=== PATIENT | male | born 1940 | race African-American/Black ===

== ENCOUNTER 2021-11-19 00:02 | Inpatient (IN) | payer MEDICARE, MEDICAID ==
[2021-11-19 00:49] LABS: #Neutrophils 9.3 10x3/uL (1.5-8.4); %Basophils 0.1 % (0.0-2.0); %Eosinophils 0.1 % (0.0-6.0); %Lymphocytes 18.5 % (18.0-47.0); %Monocytes 14.5 % (0.0-10.0); %Neutrophils 66.5 % (40.0-75.0); Hemoglobin 12.3 g/dL (13.5-17.5); Mean Corpuscular HGB CONC 32.1 g/dL (32.0-36.0); Mean Corpuscular Hemoglobin 25.6 pg (27.0-33.0); Mean Corpuscular Volume 79.8 fl (81.2-95.1); Mean Platelet Volume 11.5 fl (7.4-10.4); Platelet Count 196 10x3/uL (150-450); RBC Distribution Width 15.6 % (11.5-14.5)
[2021-11-19 01:05] LABS: ALT (SGPT) 16 U/L (8-55); AST (SGOT) 18 U/L (5-34); Albumin 3.7 g/dL (3.4-4.8); Alkaline Phosphatase 83 U/L (40-110); Anion Gap 15 mmol/L (10-20); BUN (Urea Nitrogen) 9 mg/dL (8.4-25.7); Calc. Creatinine Clearance 0 mL/min (70-130); Calcium 9.4 mg/dL (7.8-10.44); Carbon Dioxide 26 mmol/L (23-31); Chloride 103 mmol/L (98-107); Glucose 211 mg/dL (83-110); Potassium 3.2 mmol/L (3.5-5.1); Protein, Total 6.7 g/dL (5.8-8.1); Sodium 141 mmol/L (136-145)
[2021-11-19 01:32] LABS: INR-International Normal Ratio 1.1; Prothrombin Time 11.4 sec (9.5-12.1)
[2021-11-19] MEDS ORDERED: Cefepime 2 GM VIAL ONE (01:44)
[2021-11-19] MEDS ORDERED: Lidocaine 1% (PF) 30 ML VIAL ONE (01:47)
[2021-11-19] MEDS ORDERED: Guaifenesin DM 100-10/5 ML UDCUP PO PRN (03:32)
[2021-11-19] MEDS ORDERED: Ondansetron PF 4 MG/2 ML Vial IVP PRN (03:32)
[2021-11-19] MEDS ORDERED: HumaLOG 300 UNITS/3 ML VIAL SC PRN (03:32)
[2021-11-19] MEDS ORDERED: Senokot S 8.6-50 MG TAB PO PRN (03:32)
[2021-11-19] MEDS ORDERED: Dextrose 5% in Water 1,000 ML IV PRN (03:32)
[2021-11-19] MEDS ORDERED: Dextrose 50% Abboject 50 ML SYRINGE SLOW IVP PRN (03:32)
[2021-11-19] MEDS ORDERED: HYDROcodone/Acetaminophen 5/325 mg Tablet PO PRN (03:32)
[2021-11-19] MEDS ORDERED: Calcium Carbonate 500 MG ChewTAB PO PRN (03:32)
[2021-11-19] MEDS ORDERED: Acetaminophen 325 MG TAB PO PRN (03:32)
[2021-11-19] MEDS ORDERED: hydrALAZINE 20 MG/ML VIAL SLOW IVP PRN (03:36)
[2021-11-19 04:24] LABS: BF Color Yellow; Body Fluid Source Synovial Fluid; Clarity Cloudy/Turbid (Clear); Tube # 1
[2021-11-19 04:37] LABS: Bilirubin Neg (Negative); Blood, Urine 25 (Negative); Clarity Clear (Clear); Glucose, Urine (Dipstick) 250 mg/dL (Negative); Ketone, Urine Negative (Negative); Leukocyte 25 (Negative); Nitrite Negative (Negative); Protein, Urine (Dipstick) 15 mg/dl (Neg-Trace); Specific Gravity, Urine 1.005 (1.002-1.036); Urobilinogen Normal mg/dL (Less than 2)
[2021-11-19 04:49] LABS: Bacteria/HPF None Seen HPF (None Seen); Mucous/LPF None Seen LPF (<2+); RBC/HPF 0-3 HPF (0-3); Squamous Epithelial 0-3 HPF (0-3); WBC/HPF 0-3 HPF (0-3)
[2021-11-19 04:50] LABS: BF Segmented Neutrophils 95 %; Lymphocytes 5 %
[2021-11-19 05:09] LABS: Lactic Acid 1.8 mmol/L (0.5-2.2)
[2021-11-19 06:25] VITALS: BMI 43.4
[2021-11-19 06:53] LABS: SARS-CoV-2 NAA Rapid Test Not Detected (NotDetected)
[2021-11-19] MEDS ORDERED: Potassium Chloride 20 MEQ TAB PO SCH (08:00)
[2021-11-19] MEDS ORDERED: Carvedilol 6.25 MG TAB PO SCH (08:00)
[2021-11-19] MEDS ORDERED: Aspirin Chewable 81 MG TAB PO SCH (09:00)
[2021-11-19] MEDS ORDERED: Ezetimibe 10 MG TAB PO SCH (09:00)
[2021-11-19] MEDS ORDERED: Lantus 1000 UNITS/10 ML VIAL SC SCH (09:00)
[2021-11-19] MEDS ORDERED: Rosuvastatin 20 MG TAB PO SCH (09:00)
[2021-11-19] MEDS ORDERED: Enoxaparin Sodium 40 MG/0.4 ML SYRINGE SC SCH (09:00)
[2021-11-19] MEDS ORDERED: Furosemide 20 MG TAB PO SCH (09:00)
[2021-11-19] MEDS ORDERED: Losartan Potassium 50 MG TAB PO SCH (09:00)
[2021-11-19 12:37] VITALS: BP 191/86; TEMP 97.6
[2021-11-19] MEDS ORDERED: VANCOMYCIN 1.75 GM/350 ML BAG 1.75 GM in Premix Bag 1 BAG IVPB SCH (14:00)
[2021-11-19] MEDS ORDERED: Cefepime 1 GM in Sodium Chloride 0.9% 100 ML IVPB SCH (15:00)
== END 2021-11-19 12:37 | disposition short-term general hospital (02) | DRG 871 ==
LOC: CSHERS 00:02 → CSHTELE 05:10
PROVIDERS: ADMIT Student in an Organized Health Care Education/Training Program; ATTEND Internal Medicine
PROC: 0R9M3ZZ Drainage of Left Elbow Joint, Percutaneous Approach (ICD-10-PCS; principal; 2021-11-19)
PROC: 3E03329 Introduction of Other Anti-infective into Peripheral Vein, Percutaneous Approach (ICD-10-PCS; 2021-11-19)
DX: A41.9 Sepsis, unspecified organism (principal); G93.41 Metabolic encephalopathy; M00.9 Pyogenic arthritis, unspecified; I42.9 Cardiomyopathy, unspecified; E87.2 Acidosis; L03.114 Cellulitis of left upper limb; I50.20 Unspecified systolic (congestive) heart failure; I69.354 Hemiplegia and hemiparesis following cerebral infarction affecting left non-dominant side; Z68.41 Body mass index [BMI] 40.0-44.9, adult; R65.20 Severe sepsis without septic shock; F03.90 Unspecified dementia, unspecified severity, without behavioral disturbance, psychotic disturbance, mood disturbance, and anxiety; E78.5 Hyperlipidemia, unspecified; I25.10 Atherosclerotic heart disease of native coronary artery without angina pectoris; M10.9 Gout, unspecified; E66.9 Obesity, unspecified; I16.0 Hypertensive urgency; E11.65 Type 2 diabetes mellitus with hyperglycemia; I11.0 Hypertensive heart disease with heart failure; E87.6 Hypokalemia; G89.29 Other chronic pain; K21.9 Gastro-esophageal reflux disease without esophagitis; E11.51 Type 2 diabetes mellitus with diabetic peripheral angiopathy without gangrene; Z96.653 Presence of artificial knee joint, bilateral; M25.422 Effusion, left elbow; Z20.822 Contact with and (suspected) exposure to COVID-19; Z79.82 Long term (current) use of aspirin; Z79.899 Other long term (current) drug therapy; Z79.4 Long term (current) use of insulin; Z98.890 Other specified postprocedural states
CPT/HCPCS: 36415; 36416; 70450; 80053; 81003; 81015; 82945; 83605; 83880; 84484; 85025; 85610; 85652; 85730; 86140; 87040; 87070; 87086; 87205; 89051; 89060; 93005; 93306; J0360; J0692; J2001; J3370; U0002

== ENCOUNTER 2023-07-10 05:36 | Inpatient (IN) | payer OTHER ==
[2023-07-10] MEDS ORDERED: Ondansetron PF 4 MG/2 ML Vial ONE (05:59)
[2023-07-10] MEDS ORDERED: Morphine 4 MG/ML VIAL ONE (05:59)
[2023-07-10 06:40] LABS: #Monocytes 1.6 10x3/uL (0.0-1.1); #Neutrophils 12.6 10x3/uL (1.5-8.4); %Basophils 0.2 % (0.0-2.0); %Eosinophils 0.2 % (0.0-6.0); %Lymphocytes 11.9 % (18.0-47.0); %Monocytes 9.6 % (0.0-10.0); %Neutrophils 77.9 % (40.0-75.0); Hematocrit 42.8 % (38.8-50.0); Hemoglobin 13.8 g/dL (13.5-17.5); Mean Corpuscular HGB CONC 32.2 g/dL (32.0-36.0); Mean Corpuscular Hemoglobin 25.8 pg (27.0-33.0); Mean Corpuscular Volume 80.1 fl (81.2-95.1); Mean Platelet Volume 11.1 fl (7.4-10.4); Platelet Count 221 10x3/uL (150-450); Red Blood Cell (RBC) Count 5.34 10x6/uL (4.32-5.72); White Blood Cell (WBC) Count 16.2 10x3/uL (3.5-10.5)
[2023-07-10 07:01] LABS: ALT (SGPT) 28 U/L (8-55); AST (SGOT) 32 U/L (5-34); Alkaline Phosphatase 113 U/L (40-110); Anion Gap 15 mmol/L (10-20); BUN (Urea Nitrogen) 9 mg/dL (8.4-25.7); Bilirubin, Total 2.1 mg/dL (0.2-1.2); Calc. Creatinine Clearance 0 mL/min (70-130); Calcium 9.2 mg/dL (7.8-10.44); Carbon Dioxide 25 mmol/L (23-31); Chloride 104 mmol/L (98-107); Estimated GFR 88; Globulin 3.3 g/dL (2.4-3.5); Glucose 90 mg/dL (83-110); Lipase 11 U/L (8-78); Potassium 3.7 mmol/L (3.5-5.1); Protein, Total 7.3 g/dL (5.8-8.1); Sodium 140 mmol/L (136-145)
[2023-07-10] MEDS ORDERED: Piperacillin/Tazobactam 3.375 GM VIAL ONE (07:07)
[2023-07-10 07:12] LABS: Bilirubin Neg (Negative); Blood, Urine 50 (Negative); Clarity Clear (Clear); Glucose, Urine (Dipstick) Normal (Negative); Ketone, Urine 15 mg/dL (Negative); Leukocyte Negative (Negative); Nitrite Negative (Negative); Protein, Urine (Dipstick) Negative (Neg-Trace); Specific Gravity, Urine 1.005 (1.005-1.030)
[2023-07-10 07:39] LABS: Bacteria/HPF None Seen HPF (None Seen); CAUTI Indications for Culture Pelvic or flank pain; Squamous Epithelial None Seen HPF (0-3); Urine Culture Reflex No No; WBC/HPF 0-3 HPF (0-3)
[2023-07-10 09:55] LABS: Troponin I Less than 0.010 ng/mL (< 0.028)
[2023-07-10] MEDS ORDERED: Iopamidol 300 61% 100 ML VIAL FS ONE (10:19)
[2023-07-10 10:46] VITALS: BMI 41.8
[2023-07-10 13:00] LABS: Troponin I 0.017 ng/mL (< 0.028)
[2023-07-10] MEDS ORDERED: Dextrose 5% in Water 1,000 ML IV PRN (13:08)
[2023-07-10] MEDS ORDERED: Dextrose 50% Abboject 50 ML SYRINGE SLOW IVP PRN (13:08)
[2023-07-10] MEDS ORDERED: Glucagon 1 MG/ML KIT IM PRN (13:08)
[2023-07-10] MEDS ORDERED: HumaLOG 300 UNITS/3 ML VIAL SC PRN (13:08)
[2023-07-10] MEDS ORDERED: Acetaminophen 325 MG TAB PO PRN (13:10)
[2023-07-10] MEDS ORDERED: Ondansetron ODT 4 MG TAB PO PRN (13:10)
[2023-07-10] MEDS ORDERED: Calcium Carbonate 500 MG ChewTAB PO PRN (13:10)
[2023-07-10] MEDS ORDERED: Ondansetron PF 4 MG/2 ML Vial IVP PRN (13:10)
[2023-07-10] MEDS ORDERED: Piperacillin/Tazobactam 3.375 GM in Sodium Chloride 0.9% 100 ML IVPB SCH (14:00)
[2023-07-10 15:41] LABS: Magnesium 2.2 mg/dL (1.6-2.6)
[2023-07-10 15:45] LABS: Troponin I 0.027 ng/mL (< 0.028)
[2023-07-10] MEDS: Piperacillin/Tazobactam 3.375 GM in Sodium Chloride 0.9% 100 ML IVPB SCH (18:05)
[2023-07-10] MEDS ORDERED: Labetalol HCl 100 MG/20 ML VIAL SLOW IVP PRN (18:49)
[2023-07-10] MEDS: Saccharomyces boulardii 250 MG CAP PO SCH (22:28)
[2023-07-10] MEDS: Senokot S 8.6-50 MG TAB PO SCH (22:28)
[2023-07-10] MEDS: Heparin 5,000 UNITS/ML VIAL SC SCH (22:28)
[2023-07-10] MEDS: HumaLOG 300 UNITS/3 ML VIAL SC PRN (22:29)
[2023-07-11] MEDS: Piperacillin/Tazobactam 3.375 GM in Sodium Chloride 0.9% 100 ML IVPB SCH ×3 (03:57→18:13)
[2023-07-11 05:23] LABS: Hematocrit 40.5 % (38.8-50.0); Hemoglobin 13.3 g/dL (13.5-17.5); Mean Corpuscular HGB CONC 32.8 g/dL (32.0-36.0); Mean Corpuscular Volume 79.3 fl (81.2-95.1); Mean Platelet Volume 10.7 fl (7.4-10.4); Platelet Count 177 10x3/uL (150-450); RBC Distribution Width 15.9 % (11.5-14.5); Red Blood Cell (RBC) Count 5.11 10x6/uL (4.32-5.72); White Blood Cell (WBC) Count 26.1 10x3/uL (3.5-10.5)
[2023-07-11 05:35] LABS: ALT (SGPT) 52 U/L (8-55); AST (SGOT) 45 U/L (5-34); Albumin 3.4 g/dL (3.4-4.8); Alkaline Phosphatase 83 U/L (40-110); Anion Gap 14 mmol/L (10-20); BUN (Urea Nitrogen) 17 mg/dL (8.4-25.7); Bilirubin, Total 2.9 mg/dL (0.2-1.2); Calc. Creatinine Clearance 105 mL/min (70-130); Calcium 8.6 mg/dL (7.8-10.44); Carbon Dioxide 23 mmol/L (23-31); Chloride 103 mmol/L (98-107); Estimated GFR 71; Glucose 246 mg/dL (83-110); Potassium 4.6 mmol/L (3.5-5.1); Protein, Total 6.4 g/dL (5.8-8.1); Sodium 135 mmol/L (136-145)
[2023-07-11 06:01] LABS: MDiff Complete? YES
[2023-07-11 06:02] LABS: Microcytosis SLIGHT = 6-15 cells (100X) (0-5/hpf); Platelet Adequacy Comment Appears Adequate
[2023-07-11 06:33] LABS: Band 6 % (5-11); Lymphocytes 12 % (21-51); Monocytes 13 % (0-10); Neutrophil 69 % (42-75)
[2023-07-11] MEDS ORDERED: Doxycycline 100 MG CAP PO SCH (09:00)
[2023-07-11] MEDS: Senokot S 8.6-50 MG TAB PO SCH ×2 (09:41→23:22)
[2023-07-11] MEDS: Heparin 5,000 UNITS/ML VIAL SC SCH (09:45)
[2023-07-11] MEDS ORDERED: Morphine 2 MG/ML VIAL SLOW IVP SCH (14:00)
[2023-07-11 14:23] LABS: Legionella Urinary Ag Negative (Negative); Strep pneumo Urine Ag NEGATIVE (NEGATIVE)
[2023-07-11] MEDS: Saccharomyces boulardii 250 MG CAP PO SCH (23:22)
[2023-07-11] MEDS: Pantoprazole 40 MG VIAL IVP SCH (23:22)
[2023-07-12] MEDS: Piperacillin/Tazobactam 3.375 GM in Sodium Chloride 0.9% 100 ML IVPB SCH ×3 (03:00→17:01)
[2023-07-12 05:23] LABS: #Eosinphils 0.1 10x3/uL (0.0-0.5); #Monocytes 2.2 10x3/uL (0.0-1.1); #Neutrophils 16.4 10x3/uL (1.5-8.4); %Basophils 0.2 % (0.0-2.0); %Eosinophils 0.4 % (0.0-6.0); %Lymphocytes 10.6 % (18.0-47.0); %Monocytes 10.4 % (0.0-10.0); %Neutrophils 77.8 % (40.0-75.0); Hematocrit 40.1 % (38.8-50.0); Hemoglobin 12.9 g/dL (13.5-17.5); Mean Corpuscular HGB CONC 32.2 g/dL (32.0-36.0); Mean Corpuscular Hemoglobin 25.5 pg (27.0-33.0); Mean Corpuscular Volume 79.2 fl (81.2-95.1); Mean Platelet Volume 11.3 fl (7.4-10.4); Platelet Count 169 10x3/uL (150-450); RBC Distribution Width 15.9 % (11.5-14.5); Red Blood Cell (RBC) Count 5.06 10x6/uL (4.32-5.72); White Blood Cell (WBC) Count 21.1 10x3/uL (3.5-10.5)
[2023-07-12] MEDS: HumaLOG 300 UNITS/3 ML VIAL SC PRN ×3 (05:35→20:48)
[2023-07-12 05:43] LABS: ALT (SGPT) 52 U/L (8-55); AST (SGOT) 42 U/L (5-34); Albumin 3.2 g/dL (3.4-4.8); Alkaline Phosphatase 78 U/L (40-110); Anion Gap 13 mmol/L (10-20); BUN (Urea Nitrogen) 14 mg/dL (8.4-25.7); Bilirubin, Total 2.8 mg/dL (0.2-1.2); Calc. Creatinine Clearance 130 mL/min (70-130); Calcium 8.4 mg/dL (7.8-10.44); Carbon Dioxide 23 mmol/L (23-31); Chloride 104 mmol/L (98-107); Estimated GFR 87; Globulin 3.2 g/dL (2.4-3.5); Glucose 205 mg/dL (83-110); Magnesium 2.2 mg/dL (1.6-2.6); Protein, Total 6.4 g/dL (5.8-8.1); Sodium 136 mmol/L (136-145)
[2023-07-12] MEDS: Pantoprazole 40 MG VIAL IVP SCH ×2 (09:05→20:48)
[2023-07-12] MEDS ORDERED: EPINEPHrine 1 MG/ML VIAL ONE (10:11)
[2023-07-12] MEDS ORDERED: Bupivacaine PF 0.5% 30 ML VIAL ONE (10:12)
[2023-07-12] MEDS ORDERED: fentaNYL 50 mcg/mL 1 mL Vial ONE ×4 (10:38→13:57)
[2023-07-12] MEDS ORDERED: PROPOFOL 20 ML ONE (10:38)
[2023-07-12] MEDS ORDERED: Lidocaine 1% PF 5 ML VIAL ONE (10:43)
[2023-07-12] MEDS ORDERED: Rocuronium Bromide 10 MG/ML (10ML VIAL) ONE (10:43)
[2023-07-12] MEDS ORDERED: Ipratropium/Albuterol 3 ML NEB ONE (10:54)
[2023-07-12] MEDS ORDERED: Phenylephrine 40 MG/NS 250 ML 250 ML ONE (11:05)
[2023-07-12] MEDS ORDERED: ePHEDrine Sulfate 50 MG/10 ML VIAL ONE (11:24)
[2023-07-12] MEDS ORDERED: Ondansetron PF 4 MG/2 ML Vial ONE (12:21)
[2023-07-12] MEDS ORDERED: SUGAMMADEX SODIUM 200 MG/2 ML VIAL ONE (12:23)
[2023-07-12] MEDS ORDERED: Furosemide 20 MG/2 ML VIAL SLOW IVP SCH (14:00)
[2023-07-12] MEDS ORDERED: Morphine 4 MG/ML VIAL SLOW IVP PRN (14:48)
[2023-07-12] MEDS ORDERED: Acetaminophen 325 MG TAB PO PRN (14:48)
[2023-07-12] MEDS ORDERED: HYDROcodone/Acetaminophen 5/325 mg Tablet PO PRN (14:48)
[2023-07-12] MEDS ORDERED: Morphine 2 MG/ML VIAL SLOW IVP PRN (14:51)
[2023-07-12] MEDS: Heparin 5,000 UNITS/ML VIAL SC SCH (20:49)
[2023-07-12] MEDS: Senokot S 8.6-50 MG TAB PO SCH (20:49)
[2023-07-13] MEDS ORDERED: Ipratropium/Albuterol 3 ML NEB NEB PRN (01:06)
[2023-07-13] MEDS ORDERED: Furosemide 20 MG/2 ML VIAL SLOW IVP SCH ×2 (01:30→09:30)
[2023-07-13] MEDS: HumaLOG 300 UNITS/3 ML VIAL SC PRN ×5 (01:30→21:58)
[2023-07-13] MEDS: Piperacillin/Tazobactam 3.375 GM in Sodium Chloride 0.9% 100 ML IVPB SCH ×3 (01:30→18:20)
[2023-07-13 04:43] LABS: #Eosinphils 0.1 10x3/uL (0.0-0.5); #Monocytes 2.1 10x3/uL (0.0-1.1); #Neutrophils 11.1 10x3/uL (1.5-8.4); %Basophils 0.2 % (0.0-2.0); %Eosinophils 0.6 % (0.0-6.0); %Lymphocytes 12.4 % (18.0-47.0); %Monocytes 13.4 % (0.0-10.0); %Neutrophils 72.7 % (40.0-75.0); Hematocrit 36.7 % (38.8-50.0); Hemoglobin 11.8 g/dL (13.5-17.5); Mean Corpuscular HGB CONC 32.2 g/dL (32.0-36.0); Mean Corpuscular Hemoglobin 25.7 pg (27.0-33.0); Mean Platelet Volume 11.6 fl (7.4-10.4); Platelet Count 166 10x3/uL (150-450); RBC Distribution Width 15.9 % (11.5-14.5); Red Blood Cell (RBC) Count 4.59 10x6/uL (4.32-5.72); White Blood Cell (WBC) Count 15.3 10x3/uL (3.5-10.5)
[2023-07-13 04:49] LABS: ALT (SGPT) 77 U/L (8-55); AST (SGOT) 78 U/L (5-34); Albumin 2.9 g/dL (3.4-4.8); Alkaline Phosphatase 87 U/L (40-110); Anion Gap 13 mmol/L (10-20); BUN (Urea Nitrogen) 10 mg/dL (8.4-25.7); Bilirubin, Total 2.1 mg/dL (0.2-1.2); Calc. Creatinine Clearance 127 mL/min (70-130); Carbon Dioxide 22 mmol/L (23-31); Chloride 103 mmol/L (98-107); Estimated GFR 86; Globulin 3.1 g/dL (2.4-3.5); Glucose 295 mg/dL (83-110); Potassium 3.4 mmol/L (3.5-5.1); Sodium 135 mmol/L (136-145)
[2023-07-13] MEDS ORDERED: Lantus 1000 UNITS/10 ML VIAL SC SCH (09:00)
[2023-07-13] MEDS ORDERED: Furosemide 40 MG TAB PO SCH (09:00)
[2023-07-13] MEDS ORDERED: Potassium Chloride 20 MEQ TAB PO SCH ×2 (09:15→17:00)
[2023-07-13] MEDS ORDERED: traMADol HCl 50 MG TAB PO PRN (09:15)
[2023-07-13] MEDS: Senokot S 8.6-50 MG TAB PO SCH ×3 (09:38→21:58)
[2023-07-13] MEDS: Carvedilol 6.25 MG TAB PO SCH ×2 (09:38→17:00)
[2023-07-13] MEDS ORDERED: Losartan 50 MG TAB PO SCH (09:45)
[2023-07-13] MEDS ORDERED: Clopidogrel Bisulfate 75 MG TAB PO SCH (09:45)
[2023-07-13] MEDS: Pantoprazole 40 MG VIAL IVP SCH (10:15)
[2023-07-13] MEDS: Heparin 5,000 UNITS/ML VIAL SC SCH ×2 (10:15→21:57)
[2023-07-13] MEDS: Ipratropium/Albuterol 3 ML NEB NEB SCH ×4 (11:09→23:50)
[2023-07-13] MEDS ORDERED: Aspirin 81 mg Enteric Coated Tablet PO SCH (11:15)
[2023-07-13] MEDS: Potassium Chloride 20 MEQ TAB PO SCH ×2 (11:34→17:00)
[2023-07-13] MEDS: Furosemide 40 MG TAB PO SCH (14:23)
[2023-07-13] MEDS ORDERED: Heparin 5,000 UNITS/ML VIAL SC SCH (15:00)
[2023-07-13 16:28] LABS: Potassium 3.5 mmol/L (3.5-5.1)
[2023-07-13] MEDS: Lantus 1000 UNITS/10 ML VIAL SC SCH (21:57)
[2023-07-14] MEDS: Piperacillin/Tazobactam 3.375 GM in Sodium Chloride 0.9% 100 ML IVPB SCH (01:30)
[2023-07-14] MEDS: Ipratropium/Albuterol 3 ML NEB NEB SCH ×2 (03:30→07:40)
[2023-07-14 04:54] LABS: #Eosinphils 0.3 10x3/uL (0.0-0.5); #Monocytes 1.6 10x3/uL (0.0-1.1); #Neutrophils 7.2 10x3/uL (1.5-8.4); %Basophils 0.2 % (0.0-2.0); %Eosinophils 2.2 % (0.0-6.0); %Monocytes 13.5 % (0.0-10.0); %Neutrophils 62.7 % (40.0-75.0); Hematocrit 36.2 % (38.8-50.0); Mean Corpuscular HGB CONC 33.1 g/dL (32.0-36.0); Mean Corpuscular Volume 78.5 fl (81.2-95.1); Mean Platelet Volume 11.3 fl (7.4-10.4); Platelet Count 163 10x3/uL (150-450); RBC Distribution Width 15.9 % (11.5-14.5); Red Blood Cell (RBC) Count 4.61 10x6/uL (4.32-5.72); White Blood Cell (WBC) Count 11.5 10x3/uL (3.5-10.5)
[2023-07-14 05:01] LABS: ALT (SGPT) 75 U/L (8-55); AST (SGOT) 68 U/L (5-34); Albumin 2.9 g/dL (3.4-4.8); Alkaline Phosphatase 76 U/L (40-110); Anion Gap 12 mmol/L (10-20); BUN (Urea Nitrogen) 9 mg/dL (8.4-25.7); Bilirubin, Total 1.1 mg/dL (0.2-1.2); Calc. Creatinine Clearance 134 mL/min (70-130); Calcium 8.3 mg/dL (7.8-10.44); Carbon Dioxide 25 mmol/L (23-31); Chloride 104 mmol/L (98-107); Estimated GFR 88; Globulin 3.3 g/dL (2.4-3.5); Glucose 212 mg/dL (83-110); Magnesium 2.1 mg/dL (1.6-2.6); Potassium 3.7 mmol/L (3.5-5.1); Protein, Total 6.2 g/dL (5.8-8.1); Sodium 137 mmol/L (136-145)
[2023-07-14] MEDS: HumaLOG 300 UNITS/3 ML VIAL SC PRN (06:05)
[2023-07-14] MEDS: Heparin 5,000 UNITS/ML VIAL SC SCH (08:40)
[2023-07-14] MEDS: Lantus 1000 UNITS/10 ML VIAL SC SCH (08:40)
[2023-07-14] MEDS: Senokot S 8.6-50 MG TAB PO SCH (08:40)
[2023-07-14] MEDS: Furosemide 40 MG TAB PO SCH (08:41)
[2023-07-14] MEDS: Potassium Chloride 20 MEQ TAB PO SCH (08:41)
[2023-07-14] MEDS: Carvedilol 6.25 MG TAB PO SCH (08:42)
[2023-07-14] MEDS ORDERED: Aspirin 81 mg Enteric Coated Tablet PO SCH (09:00)
[2023-07-14] MEDS ORDERED: Clopidogrel Bisulfate 75 MG TAB PO SCH (09:00)
[2023-07-14] MEDS ORDERED: Losartan 50 MG TAB PO SCH (09:00)
[2023-07-14] MEDS ORDERED: Amoxicillin/Potassium Clav 875 MG TAB PO SCH (09:00)
[2023-07-14] MEDS ORDERED: Aspirin Chewable 81 MG TAB PO SCH (09:00)
[2023-07-14] MEDS ORDERED: Saccharomyces boulardii 250 MG CAP PO SCH (09:00)
[2023-07-14 10:19] VITALS: BP 114/57; TEMP 97.7
== END 2023-07-14 10:40 | disposition home or self-care (01) | DRG 854 ==
LOC: CSHERS 05:36 → CSHTELE 08:50
PROVIDERS: ADMIT Internal Medicine; ATTEND Internal Medicine
PROC: 3E03329 Introduction of Other Anti-infective into Peripheral Vein, Percutaneous Approach (ICD-10-PCS; 2023-07-10)
PROC: 0FT44ZZ Resection of Gallbladder, Percutaneous Endoscopic Approach (ICD-10-PCS; principal; 2023-07-12)
DX: A41.9 Sepsis, unspecified organism (principal); E87.1 Hypo-osmolality and hyponatremia; I50.22 Chronic systolic (congestive) heart failure; K81.0 Acute cholecystitis; Z68.41 Body mass index [BMI] 40.0-44.9, adult; Z79.899 Other long term (current) drug therapy; I25.10 Atherosclerotic heart disease of native coronary artery without angina pectoris; K21.9 Gastro-esophageal reflux disease without esophagitis; E11.9 Type 2 diabetes mellitus without complications; I11.0 Hypertensive heart disease with heart failure; Z79.82 Long term (current) use of aspirin; Z79.4 Long term (current) use of insulin; Z98.890 Other specified postprocedural states; Z82.49 Family history of ischemic heart disease and other diseases of the circulatory system; Z83.3 Family history of diabetes mellitus; Z86.73 Personal history of transient ischemic attack (TIA), and cerebral infarction without residual deficits; E66.01 Morbid (severe) obesity due to excess calories; K82.A1 Gangrene of gallbladder in cholecystitis; E87.6 Hypokalemia; E63.8 Other specified nutritional deficiencies
CPT/HCPCS: 36415; 36416; 71045; 71046; 74177; 76705; 78226; 80053; 81001; 83690; 83735; 83880; 84484; 85025; 86140; 87040; 87449; 87899; 88304; 93005; 93010; 94640; 94760; 94762; 96365; 96375; A9537; C1713; C1889; C9113; J0171; J1644; J1815; J1940; J2270; J2272; J2405; J2543; J2704; J3010; J3490; J7620; Q9967; S0020

== ENCOUNTER 2023-08-10 17:42 | Emergency (ER) | payer OTHER ==
[~2023-08-10 17:42] MED LIST: Iopamidol 370 76% 100 ML VIAL ONE
[2023-08-10 18:32] LABS: #Eosinphils 0.3 10x3/uL (0.0-0.5); #Monocytes 0.7 10x3/uL (0.0-1.1); #Neutrophils 2.6 10x3/uL (1.5-8.4); %Basophils 0.5 % (0.0-2.0); %Eosinophils 5.4 % (0.0-6.0); %Lymphocytes 41.7 % (18.0-47.0); %Monocytes 11.3 % (0.0-10.0); %Neutrophils 40.9 % (40.0-75.0); Hematocrit 34.5 % (38.8-50.0); Hemoglobin 11.2 g/dL (13.5-17.5); Mean Corpuscular HGB CONC 32.5 g/dL (32.0-36.0); Mean Corpuscular Volume 80.2 fl (81.2-95.1); Mean Platelet Volume 12.6 fl (7.4-10.4); Platelet Count 144 10x3/uL (150-450); RBC Distribution Width 15.7 % (11.5-14.5); White Blood Cell (WBC) Count 6.3 10x3/uL (3.5-10.5)
[2023-08-10 18:41] LABS: Troponin I 0.011 ng/mL (< 0.028)
[2023-08-10 19:14] LABS: ALT (SGPT) 44 U/L (8-55); AST (SGOT) 36 U/L (5-34); Albumin 3.3 g/dL (3.4-4.8); Alkaline Phosphatase 111 U/L (40-110); Anion Gap 11 mmol/L (10-20); BUN (Urea Nitrogen) 11 mg/dL (8.4-25.7); Bilirubin, Total 0.8 mg/dL (0.2-1.2); Calc. Creatinine Clearance 0 mL/min (70-130); Calcium 8.5 mg/dL (7.8-10.44); Carbon Dioxide 24 mmol/L (23-31); Chloride 109 mmol/L (98-107); Estimated GFR 88; Glucose 187 mg/dL (83-110); Potassium 3.9 mmol/L (3.5-5.1); Protein, Total 6.3 g/dL (5.8-8.1); Sodium 140 mmol/L (136-145)
== END 2023-08-10 21:22 | disposition home or self-care (01) ==
LOC: CSHERS 17:42
DX: R07.9 Chest pain, unspecified (principal); I25.10 Atherosclerotic heart disease of native coronary artery without angina pectoris; I10 Essential (primary) hypertension; E11.9 Type 2 diabetes mellitus without complications
CPT/HCPCS: 36415; 71045; 71275; 80053; 83880; 84484; 85025; 85379; 93005; Q9967

== ENCOUNTER 2025-02-23 20:19 | Emergency (ER) | payer OTHER ==
[2025-02-23 20:59] LABS: #Basophils Less than 0.03 10x3/uL (0.0-0.2); #Eosinophils 0.15 10x3/uL (0.0-0.5); #Monocytes 0.86 10x3/uL (0.0-1.1); #Neutrophils 2.89 10x3/uL (1.5-8.4); %Basophils 0.2 % (0.0-2.0); %Eosinophils 2.4 % (0.0-6.0); %Lymphocytes 38.3 % (18.0-47.0); %Monocytes 13.5 % (0.0-10.0); %Neutrophils 45.4 % (40.0-75.0); Hematocrit 29.7 % (38.8-50.0); Hemoglobin 9.8 g/dL (13.5-17.5); Mean Corpuscular Hemoglobin 26.6 pg (27.0-33.0); Mean Corpuscular Volume 80.5 fL (81.2-95.1); Platelet Count 145 10x3/uL (150-450); Red Blood Cell (RBC) Count 3.69 10x6/uL (4.32-5.72); White Blood Cell (WBC) Count 6.35 10x3/uL (3.5-10.5)
[2025-02-23 21:15] LABS: Anion Gap 11 mmol/L (10-20); BUN (Urea Nitrogen) 8 mg/dL (8.4-25.7); Calc. Creatinine Clearance 0 mL/min (70-130); Calcium 7.5 mg/dL (7.8-10.44); Carbon Dioxide 24 mmol/L (23-31); Chloride 108 mmol/L (98-107); Glucose 84 mg/dL (83-110); Potassium 3.5 mmol/L (3.5-5.1); Sodium 139 mmol/L (136-145)
[2025-02-23 21:22] LABS: Troponin I Less than 0.010 ng/mL (< 0.028)
== END 2025-02-24 01:22 | disposition home or self-care (01) ==
LOC: CSHERS 20:19
DX: J42 Unspecified chronic bronchitis (principal); I25.10 Atherosclerotic heart disease of native coronary artery without angina pectoris; E11.9 Type 2 diabetes mellitus without complications; K21.9 Gastro-esophageal reflux disease without esophagitis; E78.5 Hyperlipidemia, unspecified; I10 Essential (primary) hypertension; E66.9 Obesity, unspecified; Z86.73 Personal history of transient ischemic attack (TIA), and cerebral infarction without residual deficits; Z79.82 Long term (current) use of aspirin; Z79.899 Other long term (current) drug therapy
CPT/HCPCS: 71045; 80048; 83605; 84484; 85025; 93005